=== PATIENT | male | born 1970 | race Caucasian/White ===

== ENCOUNTER 2022-09-27 08:51 | Emergency (ER) | payer SELFPAY ==
[~2022-09-27] VITALS: Ht 190.5 cm; Wt 72.0 kg
[~2022-09-27 08:51] MED LIST: ACET-1158 PO; BENZ100C19 PO; DICY10CA PO; LORA-664 PO
[2022-09-27 13:35] VITALS: BP 103/82
[2022-09-27] MEDS ORDERED: AMOX500C2 PO (14:31)
[2022-09-27] MEDS ORDERED: DEXT1SYP9 OR (14:31)
[2022-09-27] MEDS ORDERED: guaiFENesin-DM 100/10mg/5ml SYR PO ONE (14:45)
[2022-09-28] MEDS ORDERED: TAM04C PO (17:08)
== END 2022-09-27 15:10 | disposition home or self-care (01) ==
LOC: ER 08:51
DX: J06.9 Acute upper respiratory infection, unspecified (principal); R23.8 Other skin changes; R07.89 Other chest pain; Z79.2 Long term (current) use of antibiotics; Z79.899 Other long term (current) drug therapy; Z88.1 Allergy status to other antibiotic agents; Z20.822 Contact with and (suspected) exposure to COVID-19
CPT/HCPCS: 36415; 71046; 87426; 87804